=== PATIENT | male | born 1950 | race Caucasian/White ===

== ENCOUNTER → 2017-10-15 09:21 | Outpatient (CLI) | payer MEDICARE, OTHER, SELFPAY ==
[2017-10-15 12:02] LABS: Absolute Lymphocyte Count 1.02 X10^3/ul (0.83-4.51); Absolute Neutrophil Count 3.5 X10^3/uL (2.0-7.7); Basophil# 0.02 X10^3/uL; Basophil% 0.4 % (0-1); Eosinophil# 0.14 X10^3/uL; Eosinophils% 2.7 % (0-5); Hematocrit 40.5 % (40-54); Hemoglobin 13.3 g/dl (13.0-16.5); Lymphocyte # 1.02 X10^3/ul (4.0); Lymphocyte % 19.7 % (19-41); Mean Corp Hgb Conc 32.8 g/gl (32-36); Mean Corpuscular Hgb 30.6 pg (27.0-32.0); Mean Corpuscular Volume 93.3 fL (80-94); Mean Platelet Vol. 10.4 fl (6.2-12.0); Monocyte# 0.47 X10^3/uL; Monocyte% 9.1 % (0-10); Neutrophil # 3.53 X10^3/uL (2.7-7.7); Neutrophil % 67.9 % (47-70); Platelet Count 201 K/mm3 (150-450); RBC Distribution Width CV 13.1 % (11.6-14.6); RBC Distribution Width SD 43.8 fl (35.1-43.9); Red Blood Count 4.34 M/mm3 (4.6-6.2); White Blood Count 5.2 K/mm3 (4.4-11.0)
[2017-10-15 12:08] LABS: POSITIVE COUNT NO; POSITIVE DIFFERENTIAL NO; POSITIVE MORPHOLOGY NO
[2017-10-15 12:23] LABS: ALB/GLOB Ratio 0.8 RATIO (0.9-2.4); AST(SGOT) 30 U/L (15-37); Alanine Aminotransfer ALT/SGPT 30 U/L (16-61); Albumin, Serum 3.2 g/dL (3.2-5.0); Alkaline Phosphatase 72 U/L (45-117); Anion Gap 12 (5-15); BUN 27 mg/dL (7-18); BUN/Creat Ratio 19.1 RATIO (10-20); Calcium,Total 8.6 mg/dL (8.5-10.1); Chloride 106 mmol/L (98-107); Cholesterol 218 mg/dL (200); Creatinine, Serum 1.41 mg/dL (0.70-1.30); EST Glomerular Filtration Rate 53 mL/min (>60); Est Glom Filt Rate - Afr Amer 64 mL/min (>60); Globulin 4.2 g/dL (2.2-4.2); Glucose 78 mg/dL (74-106); High Density Lipoprotein 60 mg/dL; PSA,Total - Annual Screen 2.54 ng/mL (0.00-4.00); Protein, Total 7.4 g/dL (6.4-8.2); Sodium Level 144 mmol/L (136-145); Triglycerides 79 mg/dL; Very Low Density Lipoprotein 16 mg/dL (5-40)
[2017-10-15 12:28] LABS: Hemoglobin A1c 5.5 % (4.2-6.3)
== END ==
PROVIDERS: Family Provider Family Medicine; PCP Family Medicine; Visit Provider Family Medicine
DX: I12.9 Hypertensive chronic kidney disease with stage 1 through stage 4 chronic kidney disease, or unspecified chronic kidney disease (principal); N18.3 Chronic kidney disease, stage 3 (moderate); E78.5 Hyperlipidemia, unspecified; R73.01 Impaired fasting glucose; Z12.5 Encounter for screening for malignant neoplasm of prostate
CPT/HCPCS: 36415; 80053; 80061; 83036; 84153; 85025; G0103

== ENCOUNTER → 2019-02-17 09:34 | Outpatient (CLI) | payer MEDICARE, OTHER, SELFPAY ==
[2019-02-17 12:06] LABS: Absolute Lymphocyte Count 0.86 X10^3/uL (0.83-4.51); Absolute Neutrophil Count 3.9 X10^3/uL (2.0-7.7); Basophil# 0.03 X10^3/uL; Basophil% 0.5 % (0-1); Eosinophil# 0.16 X10^3/uL; Eosinophils% 2.9 % (0-5); Hemoglobin 13.9 g/dL (13.0-16.5); Lymphocyte # 0.86 X10^3/ul (4.0); Lymphocyte % 15.5 % (19-41); Mean Corp Hgb Conc 32.3 g/dL (32-36); Mean Corpuscular Hgb 30.4 pg (27.0-32.0); Mean Corpuscular Volume 94.1 fL (80-94); Mean Platelet Vol. 10.5 fl (6.2-12.0); Monocyte# 0.58 X10^3/uL; Monocyte% 10.5 % (0-10); NRBC Flagged by Analyzer 0 % (0-5); Neutrophil % 70.4 % (47-70); Platelet Count 194 K/mm3 (150-450); RBC Distribution Width SD 44.8 fl (35.1-43.9); Red Blood Count 4.57 M/mm3 (4.6-6.2); White Blood Count 5.5 K/mm3 (4.4-11.0)
[2019-02-17 12:20] LABS: ALB/GLOB Ratio 0.8 RATIO (0.9-2.4); AST(SGOT) 29 U/L (15-37); Alanine Aminotransfer ALT/SGPT 34 U/L (16-61); Albumin, Serum 3.4 g/dL (3.2-5.0); Alkaline Phosphatase 72 U/L (45-117); Anion Gap 8 (5-15); BUN 21 mg/dL (7-18); BUN/Creat Ratio 15.2 RATIO (10-20); Calcium,Total 9.1 mg/dL (8.5-10.1); Chloride 108 mmol/L (98-107); Cholesterol 257 mg/dL (200); Creatinine, Serum 1.38 mg/dL (0.70-1.30); EST Glomerular Filtration Rate 54 mL/min (>60); Est Glom Filt Rate - Afr Amer 65 mL/min (>60); Globulin 4.3 g/dL (2.2-4.2); Glucose 93 mg/dL (74-106); High Density Lipoprotein 64 mg/dL; PSA,Total - Annual Screen 2.79 ng/mL (0.00-4.00); Potassium 3.9 mmol/L (3.5-5.1); Protein, Total 7.7 g/dL (6.4-8.2); Sodium Level 143 mmol/L (136-145); Triglycerides 124 mg/dL; Very Low Density Lipoprotein 25 mg/dL (5-40)
[2019-02-17 12:22] LABS: Hemoglobin A1c 5.6 % (4.2-6.3)
== END ==
PROVIDERS: Family Provider Family Medicine; PCP Family Medicine; Visit Provider Family Medicine
DX: I12.9 Hypertensive chronic kidney disease with stage 1 through stage 4 chronic kidney disease, or unspecified chronic kidney disease (principal); E78.5 Hyperlipidemia, unspecified; R73.01 Impaired fasting glucose; Z12.5 Encounter for screening for malignant neoplasm of prostate
CPT/HCPCS: 36415; 80053; 80061; 83036; 84153; 85025; G0103

== ENCOUNTER → 2019-02-28 16:02 | Outpatient (CLI) | payer MEDICARE, OTHER, SELFPAY ==
--- NOTE | 2019-02-28 15:20 | LES_PTH ---
PATIENT: SHENA VILLEDA [facility][id number] AGE/SX: 74/M ROOM: RE02/28/[address]: Dr. Zaheer Kc MD : 1950 BED: DIS: SPEC #: [id number] RECD: 03/03/19 09:48 STATUS: NELY USHA #: [id number] DAWOOD: 02/28/19 15:[address]: Zaheer Kc DEPT: SURGICAL PATHOLOGY RECD BY: Silvano Manzano ENTERED: 03/03/19 09:48 SP TYPE: Lesion OTHR DR: Dr. Tanner Menendez DO Tissues: Skin of forearm, NOS Procedures: Surgery Specimen Level IV HEADER OPERATION: No procedure required, lesion fell off of left forearm during office visit PRE-OP DIAGNOSIS: Skin lesion of left arm L98.9 TISSUE SUBMITTED: Skin lesion of left forearm MICROSCOPIC DIAGNOSIS Skin lesion of left forearm, biopsy: Fragments of superficial squamous epidermis with marked acute inflammation and bacterial colony. No evidence of malignancy. AM:sara 03/04/19 COMMENT The lesion may represent a cutaneous horn. If a lesion is present at this site, xcisional biopsy is recommended for definitive classification. MICROSCOPIC DESCRIPTION Slides are reviewed. GROSS DESCRIPTION Received in fixative is one container labeled with the patient's name and designated skin lesion left forearm. The specimen consists of a piece of gamble-white skin measuring 1 x 0.9 x 0.5 cm. The specimen is inked, serially sectioned and submitted entirely in one cassette. ISAAC:sara 03/03/19 TC: 2 CPT: 52069
[2019-02-28 15:23] VITALS: BMI 28.2
== END ==
PROVIDERS: Family Provider Family Medicine; PCP Family Medicine; Referring Provider Surgery; Visit Provider Surgery
DX: L98.9 Disorder of the skin and subcutaneous tissue, unspecified (principal)
CPT/HCPCS: 88305

== ENCOUNTER → 2020-03-15 11:30 | Outpatient (CLI) | payer MEDICARE, OTHER, SELFPAY ==
[2019-02-28 15:23] VITALS: BMI 28.2
[2020-03-15 15:48] LABS: Absolute Lymphocyte Count 1.05 X10^3/uL (0.83-4.51); Absolute Neutrophil Count 6.4 X10^3/uL (2.0-7.7); Basophil# 0.04 X10^3/uL; Basophil% 0.5 % (0-1); Eosinophil# 0.18 X10^3/uL; Eosinophils% 2.2 % (0-5); Hematocrit 38.4 % (40-54); Hemoglobin 12.9 g/dL (13.0-16.5); Lymphocyte # 1.05 X10^3/ul (4.0); Lymphocyte % 12.7 % (19-41); Mean Corp Hgb Conc 33.6 g/dL (32-36); Mean Corpuscular Hgb 32.3 pg (27.0-32.0); Mean Corpuscular Volume 96.2 fL (80-94); Mean Platelet Vol. 10.1 fl (6.2-12.0); Monocyte# 0.58 X10^3/uL; NRBC Flagged by Analyzer 0 % (0-5); Neutrophil # 6.39 X10^3/uL (2.7-7.7); Neutrophil % 77.2 % (47-70); Platelet Count 254 K/mm3 (150-450); RBC Distribution Width CV 12.5 % (11.6-14.6); RBC Distribution Width SD 43.4 fl (35.1-43.9); Red Blood Count 3.99 M/mm3 (4.6-6.2); White Blood Count 8.3 K/mm3 (4.4-11.0)
[2020-03-15 16:10] LABS: ALB/GLOB Ratio 0.7 RATIO (0.9-2.4); AST(SGOT) 29 U/L (15-37); Alanine Aminotransfer ALT/SGPT 43 U/L (16-61); Albumin, Serum 3.1 g/dL (3.2-5.0); Alkaline Phosphatase 94 U/L (45-117); Anion Gap 6 (5-15); BUN 28 mg/dL (7-18); BUN/Creat Ratio 17.4 RATIO (10-20); Calcium,Total 9.1 mg/dL (8.5-10.1); Chloride 108 mmol/L (98-107); Cholesterol 225 mg/dL (200); Creatinine, Serum 1.61 mg/dL (0.70-1.30); EST Glomerular Filtration Rate 45 mL/min (>60); Est Glom Filt Rate - Afr Amer 55 mL/min (>60); Globulin 4.7 g/dL (2.2-4.2); Glucose 85 mg/dL (74-106); High Density Lipoprotein 42 mg/dL; PSA,Total - Annual Screen 3.75 ng/mL (0.00-4.00); Potassium 3.8 mmol/L (3.5-5.1); Protein, Total 7.8 g/dL (6.4-8.2); Sodium Level 142 mmol/L (136-145); Triglycerides 111 mg/dL; Very Low Density Lipoprotein 22 mg/dL (5-40)
[2020-03-15 16:29] LABS: Hemoglobin A1c 5.7 % (3.8-5.6)
== END ==
PROVIDERS: PCP Family Medicine; Visit Provider Family Medicine
DX: I12.9 Hypertensive chronic kidney disease with stage 1 through stage 4 chronic kidney disease, or unspecified chronic kidney disease (principal); N18.30 Chronic kidney disease, stage 3 unspecified; E78.5 Hyperlipidemia, unspecified; R73.01 Impaired fasting glucose; Z12.5 Encounter for screening for malignant neoplasm of prostate
CPT/HCPCS: 36415; 80053; 80061; 83036; 84153; 85025; G0103

== ENCOUNTER → 2020-07-05 | Outpatient (CLI) | payer MEDICARE, OTHER, SELFPAY ==
[2019-02-28 15:23] VITALS: BMI 28.2
[2020-07-05 13:46] LABS: Mucous, Urine 0 SEEN /hpf (<or=2+); Squamous Epithelial Cells - UA 0 SEEN /hpf (0-5)
[2020-07-05 14:01] LABS: Color, Urine Yellow (Yellow); Glucose, Dipstick Normal (Normal); Ketone-Dipstick Negative (Negative); Leukocyte Esterase-Dipstick 500 /ul (Negative); Nitrite-Dipstick Negative (Negative); Occult Blood-Urine 250 /ul (Negative); Protein-Dipstick 30 mg/dl (Negative); Urine Bilirubin Dipstick Negative (Negative); Urine Clarity Cloudy (Clear); Urine Urobilinogen Normal (Normal)
[2020-07-05 14:13] LABS: White Blood Cells >100 SEEN /hpf (0-5)
[2020-07-05 14:14] LABS: Bacteria 3+ /hpf (None Seen); Red Blood Cells-Urine 10-25 SEEN /hpf (0-5)
== END | disposition home or self-care (01) ==
LOC: LABSPEC 13:35
PROVIDERS: PCP Family Medicine; Visit Provider Nurse Practitioner Adult Health
DX: R31.29 Other microscopic hematuria (principal)
CPT/HCPCS: 81001; 87077; 87086; 87088; 87186

== ENCOUNTER → 2020-07-16 16:49 | Outpatient (CLI) | payer MEDICARE, OTHER, SELFPAY ==
[2019-02-28 15:23] VITALS: BMI 28.2
[2020-07-16 18:03] LABS: PSA,Total- Diagnostic 2.37 ng/mL (0.0-4.0)
== END ==
PROVIDERS: PCP Family Medicine; Visit Provider Nurse Practitioner Adult Health
DX: R97.20 Elevated prostate specific antigen [PSA] (principal)
CPT/HCPCS: 36415; 84153

== ENCOUNTER 2020-08-18 07:30 | Day surgery (SDC) | payer MEDICARE, OTHER, SELFPAY ==
[2019-02-28 15:23] VITALS: BMI 28.2
--- NOTE | 2020-08-17 09:14 | EKG12_ITS ---
Test Reason : PRE OP Blood Pressure : / mmHG Vent. Rate : 067 BPM Atrial Rate : 067 BPM P-R Int : 198 ms QRS Dur : 092 ms QT Int : 408 ms P-R-T Axes : 014 -02 038 degrees QTc Int : 431 ms Normal sinus rhythm Normal ECG Confirmed by BRIGHT LEÓN, STEPHAN ([id number]), editor in chief newspaper [employer]MA RODRIGUEZ ([id number]) on 08/18/2020 9:33:50 AM Referred By: Ramesh Hartmann Confirmed By:STEPHAN NOVOA MD
[2020-08-17 10:02] LABS: Anion Gap 9 (5-15); BUN 31 mg/dL (7-18); BUN/Creat Ratio 18.5 RATIO (10-20); Chloride 106 mmol/L (98-107); Creatinine, Serum 1.68 mg/dL (0.70-1.30); EST Glomerular Filtration Rate 43 mL/min (>60); Est Glom Filt Rate - Afr Amer 52 mL/min (>60); Glucose 89 mg/dL (74-106); Potassium 3.8 mmol/L (3.5-5.1); Sodium Level 142 mmol/L (136-145)
[2020-08-18] VITALS (10 sets, daily range): BP systolic 104–136; BP diastolic 62–91; PULSE 56–77; RESP 16–18; TEMP 36.3–37.1; O2SAT 95–99; BMI 28.8
--- NOTE | 2020-08-18 | PROS_PTH ---
PATIENT: SHENA VILLEDA [place] [facility] [place][id number] AGE/SX: 70/M ROOM: RE08/18/[address]: Dr. Ramesh Hartmann MD : 1950 BED: DIS: 08/19/2020 SPEC #: [id number] RECD: 08/18/20 12:26 STATUS: NELY REAmada #: [id number] DAWOOD: 08/18/20 00:[address]: Ramesh Hartmann DEPT: SURGICAL PATHOLOGY RECD BY: Marybel Polk ENTERED: 08/19/20 10:10 SP TYPE: TURP OTHR DR: MD Dr. Tanner Brambila, DO Tissues: Prostate, NOS Procedures: Surgery Specimen Level IV HEADER OPERATION: Cysto, TUR prostate, Olympus PRE-OP DIAGNOSIS: BPH with obstruction TISSUE SUBMITTED: Prostate tissue MICROSCOPIC DIAGNOSIS Prostate, transurethral resection: Benign nodule hyperplasia, glandular and stromal types. Chronic inflammation. Urothelium with mild chronic inflammation. AM:reji 08/20/2020 MICROSCOPIC DESCRIPTION Slides are reviewed. GROSS DESCRIPTION Received is one container labeled with the patient's name and designated prostate tissue. The specimen consists of multiple irregular fragments of pink-gamble, rubbery, soft tissue that in aggregate weigh 8.2 gm and measure in aggregate 6 x 5 x 0.6 cm. The entire specimen is submitted in eight cassettes. / AM:reji 08/19/20 TC:3 CPT: 88598
[2020-08-18] MEDS: Lactated Ringers 1,000 ML 100 ML IV ×2 (08:04→10:40)
--- NOTE | 2020-08-18 09:04 | PCM.HP.STD ---
HPI - General HPI Narrative SHENA VILLEDA, is a 70 M who presents with obstruction of the prostate with plan to proceed with a transurethral resection of the prostate. [facility] Medical History (Updated 08/18/20 @ 09:[address] Ramesh Hartmann MD) Alcohol use Arthritis Former smoker Hypertension Skin lesion skin lesion left forearm Wears contact lenses Wears glasses Wears partial dentures Home Medications lisinopril 20 mg-hydrochlorothiazide 25 mg tablet 1 tab PO DAILY 02/28/19 [History Last Taken Unknown] alfuzosin 10 mg PO DAILY 08/11/20 [History Last Taken Unknown] dorzolamide-timolol [Cosopt] 1 drp EACH EYE BID 08/11/20 [History Last Taken Unknown] metoprolol tartrate 100 mg PO DAILY 08/11/20 [History Last Taken Unknown] multivitamin 1 tab PO DAILY 08/11/20 [History Last Taken Unknown] ciprofloxacin HCl [Cipro] 500 mg PO BID #10 tab 08/18/20 [Rx Last Taken Unknown] Allergy/AdvReac Type Severity Reaction Status Date / Time No Known Allergies Allergy Verified 08/11/20 10:15 Family History (Updated 02/28/19 @ 15:22 by Mira De La Garza) Mother Heart disease Hypertension Father Heart disease Surgical History (Updated 02/28/19 @ 15:20 by Mira De La Garza) History of left hip replacement Social History (Updated 02/28/19 @ 15:[address] Zaheer Kc MD) Smoking Status: Former smoker alcohol intake: current substance use type: does not use Vital Signs Vital Signs Vital Signs: 08/18/20 08:04 Temperature 98.8 F Temperature Source Oral Pulse Rate 60 Respiratory Rate 16 Respiratory Pattern Normal Blood Pressure 136/91 H Blood Pressure Mean 106 Blood Pressure Source Monitor Blood Pressure Position Semi-Fowlers Blood Pressure Location Right Arm Pulse Ox 98 Oxygen Delivery Method Room Air Weight Weight: 80.9 kg Body Mass Index (BMI) 28.8 Physical Exam Const alert and oriented x3 General Appearance: cooperative HEENT normocephalic, head/scalp atraumatic, EAC's normal and TM's normal bilaterally Eyes PERRL and EOMs intact bilaterally Pupil: sluggish Neck no lymphadenopathy, supple and no JVD General: trachea midline Lymph Lymphatic: no lymphadenopathy noted, lymphedema and lymphadenopathy Resp normal respiratory effort, normal air movement and clear to auscultation bilaterally Cardio regular rate, regular rhythm and peripheral pulses 2+ throughout GI soft to palpation, non-tender and non-distended Extremity normal capillary refill and no clubbing, cyanosis or edema General Extremity: no tenderness to palpation of joints or extremities Skin no rashes or lesions noted General Skin Exam: turgor normal Lesions: no lesions Rashes: no rashes Neuro CN's II-XII intact bilaterally Speech: speech normal Motor Exam: strength 5/5 throughout; Negative for general weakness Psych thought process normal, cooperative and affect normal Appearance: appropriate Lab / Micro Data Result Diagrams: 08/17/20 09:29 08/17/20 09:29 Labs: Laboratory Results - last 24 hr 08/17/20 09:29 Sodium 142 Potassium 3.8 Chloride 106 Carbon Dioxide 27.0 Anion Gap 9 BUN 31 H Creatinine 1.68 H Est GFR (MDRD) Af Amer 52 L Est GFR (MDRD) Non-Af 43 L BUN/Creatinine Ratio 18.5 Glucose 89 Calcium 9.0 Micro: Microbiology 08/17/20 09:20 SARS-CoV-2 Antigen (Rapid) - Final Interface Orders Assessment & Plan Assessment/Plan (1) BPH with obstruction/lower urinary tract symptoms: PLAN: Plan to proceed with a transurethral resection of the prostate.
--- NOTE | 2020-08-18 09:05 | PCM.DC ---
Discharge Instructions Diet Discharge Diet: No restrictions Activity Discharge Activity: May not drive while taking narcotic pain medications. (for 3 days.) May shower in (days): 1 Dressing / Incision Call your doctor if your incision/area has: Continuous Slow Oozing, Increased Pain/ Swelling, Increased Redness and Foul Smelling Discharge Call your doctor if you observe: Fever of 101 or Higher, Numbness or Tingling, Shortness of breath, Dizziness, Calf discomfort and Uncontrolled pain Cleanse incision/area with: Keep Dressing Clean & Dry Follow Up Care Please Follow Up With: Ramesh Hartmann MD When: Call [phone] for an appointment Test Results: Test results from this visit will be discussed in further detail at your follow-up appointment, if applicable. Discharge Plan Admission Primary Reason for Your Visit: SIMONE Attending Provider: Ramesh Hartmann Primary Care Provider: Tanner Menendez Consulting Providers: Morgan Conklin Discharge Orders/Prescriptions Prescriptions: New ciprofloxacin HCl [Cipro] 500 mg tablet 500 mg PO BID Qty: 10 RF: 0 Continued lisinopril-hydrochlorothiazide 20-25 mg tablet 1 tab PO DAILY RF: 0 multivitamin Tablet 1 tab PO DAILY RF: 0 metoprolol tartrate 100 mg Tablet 100 mg PO DAILY RF: 0 dorzolamide-timolol [Cosopt] 22.3-6.8 mg/mL drops 1 drp EACH EYE BID RF: 0 alfuzosin 10 mg tablet extended release 24 hr 10 mg PO DAILY RF: 0 Referrals / Follow Up: Ramesh Hartmann MD [STAFF PHYSICIAN] - Tanner Menendez DO [Primary Care Provider] -
[2020-08-18] MEDS: Cefazolin 2 GM in 0.9% Normal Saline 100 ML IV (09:11)
--- NOTE | 2020-08-18 10:13 | OP.PCM_ITS ---
Report of Operation Date of Procedure: 08/18/20 Pre-Operative Diagnosis: BPH with obstruction Post-Operative Diagnosis: Same Surgery/Procedure Performed:: Transurethral resection of the prostate Description of Surgical Findings:: In the preoperative setting I discussed with the patient how the surgery would be done with expect afterwards. We discussed how a prostate resection is done and we discussed the risk of the surgery including, bleeding, infection, retrograde ejaculation, changes with ejaculation or intercourse,. We discussed the possibility that the resection of the prostate may not alleviate his urinary symptoms. We discussed the small risk of developing scar tissue along the urethral channel and strictures. We also discussed the chance of the prostate could grow back and he may need further surgery or treatment in the future for prostate problems. Patient was taken back to the operating room, timeout procedure was performed, he was identified and marked and placed on the operating room table. He underwent general anesthesia. He was placed in dorsolithotomy position. Penis and testicles were prepped and draped in usual sterile fashion. Went into the bladder using the visual obturator with a resectoscope. Once inside the bladder identified the right and left ureteral orifice. I then identified the prostate and the anatomy of the prostate. I marked out the area of the sphincter and the verumontanum was identified. I then proceeded with the prostate resection first resected the median lobe. And then resected the right lobe of the prostate. Then to resect the left lobe of the prostate. I then resected the apical tissue of the prostate. Made sure that there was no injury to the sphincter or the verumontanum was still intact. At the end of the resection all the chips were Ellik out of the bladder. I then identified the left and right ureteral orifice and these were confirmed to be in good position and effluxing and not injured. The resectoscope was removed, a 22 Burkinan catheter was placed into the bladder on continuous irrigation. And the urine was fairly light pink color and draining normally. He was taken back to the PACU in good condition. Surgeon: Mary Kate Type of Anesthesia: General Drains: 22 Burkinan three-way catheter Admit VTE Documentation VTE Present on Admission: No VTE Mechan Device Prophylaxis: SCD's
[2020-08-18] MEDS: 0.9% Normal Saline 1,000 ML 125 ML IV ×2 (12:07→20:23)
[2020-08-18] MEDS: Pantoprazole Sodium 40 MG Tablet PO (13:00)
[2020-08-18] MEDS: Docusate Sodium 100 MG Capsule PO ×2 (13:00→20:23)
[2020-08-18] MEDS: Ciprofloxacin 400 MG/200 ML BAG 200 MG IV (17:28)
[2020-08-19] MEDS: 0.9% Normal Saline 1,000 ML 125 ML IV (04:09)
[2020-08-19 04:11] VITALS: BP 116/70; PULSE 63; RESP 18; TEMP 36.9; O2SAT 97
[2020-08-19] MEDS: Ciprofloxacin 400 MG/200 ML BAG 200 MG IV (05:02)
--- NOTE | 2020-08-19 06:58 | PCM.PN.BLA ---
Progress Note s/p TURP Physical Exam Const alert and oriented x3 General Appearance: cooperative HEENT normocephalic, head/scalp atraumatic, EAC's normal and TM's normal bilaterally Eyes PERRL and EOMs intact bilaterally Pupil: sluggish Neck no lymphadenopathy, supple and no JVD General: trachea midline Lymph Lymphatic: no lymphadenopathy noted, lymphedema and lymphadenopathy Resp normal respiratory effort, normal air movement and clear to auscultation bilaterally Cardio regular rate, regular rhythm and peripheral pulses 2+ throughout GI soft to palpation, non-tender and non-distended Extremity normal capillary refill and no clubbing, cyanosis or edema General Extremity: no tenderness to palpation of joints or extremities Skin no rashes or lesions noted General Skin Exam: turgor normal Lesions: no lesions Rashes: no rashes Neuro CN's II-XII intact bilaterally Speech: speech normal Motor Exam: strength 5/5 throughout; Negative for general weakness Psych thought process normal, cooperative and affect normal Appearance: appropriate Assessment & Plan Assessment/Plan (1) BPH with obstruction/lower urinary tract symptoms: PLAN: d/c hart home after voids
[2020-08-19 09:29] VITALS: BP 121/71; PULSE 76; RESP 18; TEMP 36.9; O2SAT 96
[2020-08-19] MEDS: Docusate Sodium 100 MG Capsule PO (09:42)
[2020-08-19] MEDS: Pantoprazole Sodium 40 MG Tablet PO (09:43)
--- NOTE | 2020-08-19 10:00 | PHA.DC.MR ---
Pharmacy Service has performed discharge medication reconciliation for this patient. No new medications at time of discharge review. Medications reviewed are from previously reported home medications. Home Medications lisinopril 20 mg-hydrochlorothiazide 25 mg tablet 1 tab PO DAILY 02/28/19 alfuzosin 10 mg PO DAILY 08/11/20 dorzolamide-timolol [Cosopt] 1 drp EACH EYE BID 08/11/20 metoprolol tartrate 100 mg PO DAILY 08/11/20 multivitamin 1 tab PO DAILY 08/11/20 The patient's discharge medication list was reviewed for discrepancies and discrepancies were resolved.
[2020-08-19 12:05] VITALS: BP 121/71; PULSE 76; RESP 18; TEMP 36.9; O2SAT 96
== END 2020-08-19 12:05 ==
LOC: SDC 07:30 → AC 07:30 → MS3 10:51
PROVIDERS: Anesthesiology; PCP Family Medicine; Referring Provider Urology; Visit Provider Urology
PROC: (CPT 52601; principal; 2020-08-18 09:30)
DX: N40.1 Benign prostatic hyperplasia with lower urinary tract symptoms (principal); N13.8 Other obstructive and reflux uropathy; I10 Essential (primary) hypertension; M19.90 Unspecified osteoarthritis, unspecified site; Z79.899 Other long term (current) drug therapy; Z87.891 Personal history of nicotine dependence
CPT/HCPCS: 00914; 52601; 36415; 80048; 87426; 88305; 93005; C9803; J7030; J7120; J0744; J2405

== ENCOUNTER → 2022-09-22 | Outpatient (CLI) | payer MEDICARE, SELFPAY ==
[2022-09-22 12:43] LABS: Absolute Lymphocyte Count 1.34 X10^3/uL (0.83-4.51); Absolute Neutrophil Count 4.7 X10^3/uL (2.0-7.7); Basophil# 0.06 X10^3/uL; Basophil% 0.9 % (0-1); Eosinophil# 0.22 X10^3/uL; Eosinophils% 3.2 % (0-5); Hematocrit 43.3 % (40-54); Hemoglobin 13.8 g/dL (13.0-16.5); Lymphocyte # 1.34 X10^3/ul (0.83-4.51); Lymphocyte % 19.3 % (19-41); Mean Corp Hgb Conc 31.9 g/dL (32-36); Mean Corpuscular Hgb 31.1 pg (27.0-32.0); Mean Corpuscular Volume 97.5 fL (80-94); Mean Platelet Vol. 10.8 fl (6.2-12.0); Monocyte# 0.58 X10^3/uL; Monocyte% 8.4 % (0-10); NRBC Flagged by Analyzer 0 % (0-5); Neutrophil # 4.71 X10^3/uL (2.7-7.7); Neutrophil % 67.8 % (47-70); Platelet Count 256 K/mm3 (150-450); RBC Distribution Width CV 12.7 % (11.6-14.6); RBC Distribution Width SD 45.4 fl (35.1-43.9); Red Blood Count 4.44 M/mm3 (4.6-6.2); White Blood Count 6.9 K/mm3 (4.4-11.0)
[2022-09-22 13:08] LABS: Vitamin D,25 Hydroxy 49.4 ng/mL
[2022-09-22 13:17] LABS: ALB/GLOB Ratio 0.7 RATIO (0.9-2.4); AST(SGOT) 26 U/L (15-37); Alanine Aminotransfer ALT/SGPT 31 U/L (16-61); Albumin, Serum 3.4 g/dL (3.2-5.0); Alkaline Phosphatase 85 U/L (45-117); Anion Gap 4 (5-15); BUN 54 mg/dL (7-18); BUN/Creat Ratio 26.3 RATIO (10-20); Calcium,Total 9.2 mg/dL (8.5-10.1); Chloride 110 mmol/L (98-107); Cholesterol 239 mg/dL (200); Creatinine, Serum 2.05 mg/dL (0.70-1.30); EST Glomerular Filtration Rate 34 mL/min (>60); Est Glom Filt Rate - Afr Amer 41 mL/min (>60); Globulin 4.7 g/dL (2.2-4.2); Glucose 104 mg/dL (74-106); High Density Lipoprotein 49 mg/dL; Potassium 3.8 mmol/L (3.5-5.1); Protein, Total 8.1 g/dL (6.4-8.2); Sodium Level 142 mmol/L (136-145); Triglycerides 122 mg/dL; Very Low Density Lipoprotein 24 mg/dL (5-40)
[2022-09-22 15:05] LABS: Hemoglobin A1c 5.5 % (3.8-5.6)
== END | disposition home or self-care (01) ==
LOC: MTLAB 10:42
PROVIDERS: PCP Family Medicine; Referring Provider Family Medicine; Visit Provider Family Medicine
DX: I12.9 Hypertensive chronic kidney disease with stage 1 through stage 4 chronic kidney disease, or unspecified chronic kidney disease (principal); N18.32 Chronic kidney disease, stage 3b; E78.5 Hyperlipidemia, unspecified; R73.01 Impaired fasting glucose
CPT/HCPCS: 36415; 80053; 80061; 82043; 82306; 82570; 83036; 83970; 85025

== ENCOUNTER 2023-04-17 13:47 | Outpatient (CLI) | payer MEDICARE, SELFPAY ==
[2023-04-17 16:17] LABS: ALB/GLOB Ratio 0.8 RATIO (0.9-2.4); AST(SGOT) 26 U/L (15-37); Alanine Aminotransfer ALT/SGPT 32 U/L (16-61); Albumin, Serum 3.5 g/dL (3.2-5.0); Alkaline Phosphatase 69 U/L (45-117); Anion Gap 6 (5-15); BUN 30 mg/dL (7-18); BUN/Creat Ratio 17.5 RATIO (10-20); Calcium,Total 9.3 mg/dL (8.5-10.1); Chloride 107 mmol/L (98-107); Cholesterol 245 mg/dL (200); Creatinine, Serum 1.71 mg/dL (0.70-1.30); EST Glomerular Filtration Rate 42 mL/min (>60); Est Glom Filt Rate - Afr Amer 51 mL/min (>60); Globulin 4.4 g/dL (2.2-4.2); Glucose 97 mg/dL (74-106); High Density Lipoprotein 60 mg/dL; Protein, Total 7.9 g/dL (6.4-8.2); Sodium Level 140 mmol/L (136-145); Triglycerides 113 mg/dL; Very Low Density Lipoprotein 23 mg/dL (5-40)
== END 2023-04-17 23:59 | disposition home or self-care (01) ==
LOC: BFHLAB 13:48
PROVIDERS: PCP Family Medicine; Visit Provider Family Medicine
DX: I12.9 Hypertensive chronic kidney disease with stage 1 through stage 4 chronic kidney disease, or unspecified chronic kidney disease (principal); N18.32 Chronic kidney disease, stage 3b; E78.5 Hyperlipidemia, unspecified; N39.0 Urinary tract infection, site not specified
CPT/HCPCS: 36415; 80053; 80061; 87077; 87086; 87088; 87186